=== PATIENT | male | born 1990 | race Caucasian/White ===

== ENCOUNTER 2021-09-29 20:49 | Emergency (ER) | payer SELFPAY ==
[~2021-09-29 20:49] MED LIST: CATAFLAM50 MG PO; NKHM; PERCOCET 325 MG1 TAB PO; ROBAXIN500 MG PO; ROBAXIN750 MG PO; TRAMADOL HCL50 MG PO
== END 2021-09-29 21:47 | disposition home or self-care (01) ==
LOC: ED 20:49
DX: M25.561 Pain in right knee (principal)